=== PATIENT | male | born 1940 | race Caucasian/White ===

== ENCOUNTER → 2017-09-26 | Outpatient (CLI) | payer MEDICARE, BC ==
[~2017-09-26] MED LIST: DILT30TA33 PO; FINA5TAB4 PO; FURO20TA3 PO; LISI5TAB7 PO; METO50TA82 PO; NITR100C6 PO; RIVA20TA PO
[2017-09-26 12:35] LABS: BASOPHILS # (AUTO) 0.05 x10^3/uL (0-0.1); BASOPHILS % (AUTO) 1 % (0-1); EOSINOPHILS # (AUTO) 0.13 x10^3/uL (0-0.4); EOSINOPHILS % (AUTO) 2 % (1-7); LYMPHOCYTES # (AUTO) 1.49 x10^3/uL (1-3.4); LYMPHOCYTES % (AUTO) 19 % (22-44); MD NO; MEAN CORPUSCULAR HEMOGLOBIN 30.4 pg (27.5-34.5); MEAN CORPUSCULAR HGB CONC 33.1 g/dL (33.2-36.2); MEAN PLATELET VOLUME 9.3 fL (7.4-10.4); MONOCYTES # (AUTO) 0.58 x10^3/uL (0.2-0.8); MONOCYTES % (AUTO) 7 % (2-9); NEUTROPHILS # (AUTO) 5.74 x10^3/uL (1.8-6.8); NEUTROPHILS % (AUTO) 72 % (42-75); PLATELET COUNT 209 x10^3/uL (130-400); RED BLOOD COUNT 5.52 x10^6/uL (4.38-5.82); RED CELL DISTRIBUTION WIDTH 14.4 % (9.4-14.8)
[2017-09-26 12:37] LABS: INTERNATIONAL NORMALIZED RATIO 1.21 (0.93-1.1); PROTHROMBIN TIME 12.4 Seconds (9.6-11.5)
[2017-09-26 12:43] LABS: ALBUMIN 3.8 g/dL (3.4-5.0); ANION GAP 8 mmol/L (5-15); CALCIUM 9.4 mg/dL (8.5-10.1); CHLORIDE 103 mmol/L (98-107)
[2017-09-26 12:47] LABS: ALANINE AMINOTRANSFERASE 20 U/L (12-78); ALKALINE PHOSPHATASE 57 U/L (45-117); BILIRUBIN,TOTAL 0.8 mg/dL (0.2-1.0); CREATININE 1.62 mg/dL (0.7-1.3); TOTAL PROTEIN 7.9 g/dL (6.4-8.2)
== END | disposition home or self-care (01) ==
LOC: CFH 10:59
PROVIDERS: ATTEND Internal Medicine Cardiovascular Disease
DX: Z01.818 Encounter for other preprocedural examination (principal); I48.2 Chronic atrial fibrillation; I50.9 Heart failure, unspecified; I42.9 Cardiomyopathy, unspecified; I47.2 Ventricular tachycardia
CPT/HCPCS: 36415; 71046; 80053; 85025; 85610

== ENCOUNTER 2017-09-29 12:18 | Observation (INO) | payer MEDICARE, BC ==
[~2017-09-29] VITALS: Ht 182.9 cm; Wt 105.1 kg
[2017-09-29] MEDS ORDERED: SODIUM CHLORIDE 0.9% 1,000 ML IV SCH (12:53)
[2017-09-29] MEDS: SODIUM CHLORIDE 0.9% 1,000 ML IV SCH ×2 (12:53→20:53)
[2017-09-29] MEDS ORDERED: VANCOMYCIN PMX 1GM/200ML 200 ML IVPB SCH (13:00)
[2017-09-29 13:03] VITALS: BP 110/90
[2017-09-29] MEDS ORDERED: DILT30TA33 PO (13:15)
[2017-09-29] MEDS ORDERED: METO50TA82 PO (13:15)
[2017-09-29] MEDS ORDERED: LISI5TAB7 PO (13:15)
[2017-09-29] MEDS ORDERED: NITR100C6 PO (13:15)
[2017-09-29] MEDS ORDERED: RIVA20TA PO (13:15)
[2017-09-29] MEDS ORDERED: FINA5TAB4 PO (13:15)
[2017-09-29] MEDS ORDERED: FURO20TA3 PO (13:15)
[2017-09-29] MEDS: PLEASE ENTER ALLERGIES MC SCH ×2 (13:30→19:56)
[2017-09-29] MEDS: PLEASE ENTER HEIGHT AND WEIGHT MC SCH ×2 (13:30→19:56)
[2017-09-29] MEDS ORDERED: FENTANYL PF 250 MCG/5ML ONE (15:42)
[2017-09-29] MEDS ORDERED: MIDAZOLAM 1 MG/ML, 2ML ONE (15:42)
[2017-09-29] MEDS ORDERED: SUCCINYLCHOLINE 20 MG/ML, 10ML ONE (15:57)
[2017-09-29] MEDS ORDERED: PROPOFOL 10 MG/ML, 50ML ONE (15:57)
[2017-09-29] MEDS ORDERED: DEXAMETHASONE 4 MG/ML, 1ML ONE (15:57)
[2017-09-29] MEDS ORDERED: ONDANSETRON 2MG/ML, 2ML ONE (15:57)
[2017-09-29] MEDS ORDERED: LIDOCAINE 2%, 20ML ONE (16:16)
[2017-09-29] MEDS ORDERED: VANCOMYCIN PMX 1GM/200ML 200 ML ONE (16:16)
[2017-09-29] MEDS ORDERED: VANCOMYCIN 500 MG ONE (16:16)
[2017-09-29] MEDS ORDERED: HYDROcodone/APAP 5/325 TABLET PO PRN (18:00)
[2017-09-29] MEDS ORDERED: HYDROmorphone 1 MG/ML, 1ML IV PRN (18:30)
[2017-09-29] MEDS ORDERED: OXYcodone 5 MG/5 ML ORAL.SOL UDC PO PRN (18:30)
[2017-09-29] MEDS ORDERED: FENTANYL PF 100 MCG/2ML IV PRN (18:30)
[2017-09-29] MEDS ORDERED: ACETAMINOPHEN 325 MG TABLET PO PRN (18:30)
[2017-09-29] MEDS ORDERED: ONDANSETRON 2MG/ML, 2ML IVPush PRN (18:30)
[2017-09-29] MEDS ORDERED: MIDAZOLAM 1 MG/ML, 2ML IV PRN (18:30)
[2017-09-29] MEDS ORDERED: ACETAMINOPHEN 650 MG/20.3 ML UDC ONE (18:42)
[2017-09-29] MEDS ORDERED: OXYcodone 5 MG/5 ML ORAL.SOL UDC ONE (18:42)
[2017-09-29 19:14] VITALS: BP 102/71
[2017-09-29] MEDS ORDERED: CEFAZOLIN PMX 1GM/50ML 50 ML IVPB SCH (20:00)
[2017-09-29] MEDS: METOPROLOL TARTRATE 50 MG TABLET PO SCH (21:00)
[2017-09-29] MEDS: SODIUM CHLORIDE FLUSH 10ML SYR IVF SCH (21:00)
[2017-09-30] MEDS: CEFAZOLIN PMX 1GM/50ML 50 ML IVPB SCH ×2 (00:34→09:03)
[2017-09-30 00:51] VITALS: BP 97/65
[2017-09-30] MEDS ORDERED: CEFAZOLIN PMX 1GM/50ML 50 ML IVPB SCH (04:00)
[2017-09-30 08:20] VITALS: BP 94/63
[2017-09-30] MEDS ORDERED: METO25TA2 PO (08:43)
[2017-09-30] MEDS: METOPROLOL TARTRATE 50 MG TABLET PO SCH (08:45)
[2017-09-30] MEDS ORDERED: ACET-76 PO (08:46)
[2017-09-30] MEDS ORDERED: LISINOPRIL 5 MG TABLET PO SCH (09:00)
[2017-09-30] MEDS ORDERED: FUROSEMIDE 20 MG TABLET PO SCH (09:00)
[2017-09-30] MEDS ORDERED: FINASTERIDE 5 MG TABLET PO SCH (09:00)
[2017-09-30] MEDS ORDERED: NITROFURANTOIN (MACROBID) 100 MG CAPSULE PO SCH (09:00)
[2017-09-30] MEDS: SODIUM CHLORIDE FLUSH 10ML SYR IVF SCH (09:03)
[2017-09-30] MEDS ORDERED: CEFAZOLIN PMX 1GM/50ML 50 ML IV ONE (11:30)
== END 2017-09-30 12:51 | disposition home or self-care (01) ==
LOC: CACL 12:18 → ORIP 17:58 → 5SO 19:07
PROVIDERS: ADMIT Internal Medicine Cardiovascular Disease; ATTEND Internal Medicine Cardiovascular Disease
DX: I48.2 Chronic atrial fibrillation (principal); I42.9 Cardiomyopathy, unspecified; I50.9 Heart failure, unspecified; I44.2 Atrioventricular block, complete; I47.2 Ventricular tachycardia
CPT/HCPCS: 33225; 33249; 71045; 93640; 93650; 96365; 96375; 96376; C1766; C1769; C1882; C1887; C1892; C1894; C1895; C1900; C2630; G0378; J0330; J0690; J1100; J2250; J2405; J2704; J3010; J3370; J3490; Q9967

== ENCOUNTER → 2017-11-22 | Outpatient (CLI) | payer MEDICARE, BC ==
[~2017-11-22] MED LIST changes: +ACET-76 PO; +METO25TA2 PO
[2017-11-22 11:46] LABS: BASOPHILS # (AUTO) 0.06 x10^3/uL (0-0.1); BASOPHILS % (AUTO) 1 % (0-1); EOSINOPHILS # (AUTO) 0.22 x10^3/uL (0-0.4); EOSINOPHILS % (AUTO) 3 % (1-7); LYMPHOCYTES # (AUTO) 1.56 x10^3/uL (1-3.4); LYMPHOCYTES % (AUTO) 19 % (22-44); MD NO; MEAN CORPUSCULAR HEMOGLOBIN 30.5 pg (27.5-34.5); MEAN CORPUSCULAR HGB CONC 33.4 g/dL (33.2-36.2); MEAN CORPUSCULAR VOLUME 91.4 fL (81-97); MEAN PLATELET VOLUME 8.4 fL (7.4-10.4); MONOCYTES # (AUTO) 0.68 x10^3/uL (0.2-0.8); MONOCYTES % (AUTO) 8 % (2-9); NEUTROPHILS # (AUTO) 5.56 x10^3/uL (1.8-6.8); NEUTROPHILS % (AUTO) 69 % (42-75); PLATELET COUNT 176 x10^3/uL (130-400); RED BLOOD COUNT 4.95 x10^6/uL (4.38-5.82); RED CELL DISTRIBUTION WIDTH 14.9 % (9.4-14.8)
[2017-11-22 11:51] LABS: MICROSCOPIC AUTO
[2017-11-22 11:54] LABS: ALANINE AMINOTRANSFERASE 19 U/L (12-78); ALBUMIN 3.5 g/dL (3.4-5.0); ANION GAP 8 mmol/L (5-15); CALCIUM 8.8 mg/dL (8.5-10.1); CHLORIDE 104 mmol/L (98-107)
[2017-11-22 11:57] LABS: ALKALINE PHOSPHATASE 73 U/L (45-117); BILIRUBIN,TOTAL 0.5 mg/dL (0.2-1.0); TOTAL PROTEIN 7.1 g/dL (6.4-8.2)
== END ==
LOC: STAR 10:25
PROVIDERS: ATTEND Urology
DX: Z01.818 Encounter for other preprocedural examination (principal); R94.31 Abnormal electrocardiogram [ECG] [EKG]; Z95.0 Presence of cardiac pacemaker; Z79.899 Other long term (current) drug therapy
CPT/HCPCS: 36415; 71045; 80053; 81001; 85025; 87077; 87086; 87186; 93005

== ENCOUNTER 2017-12-04 11:58 | Observation (INO) | payer MEDICARE, BC ==
[~2017-12-04] VITALS: Ht 185.4 cm; Wt 110.0 kg
[2017-12-04] MEDS ORDERED: LACTATED RINGERS 1,000 ML IV SCH (12:09)
[2017-12-04] MEDS ORDERED: PHENYLEPHRINE 10 MG/ML ONE (13:25)
[2017-12-04] MEDS ORDERED: DEXAMETHASONE 4 MG/ML, 1ML ONE (13:25)
[2017-12-04] MEDS ORDERED: ONDANSETRON 2MG/ML, 2ML ONE (13:25)
[2017-12-04] MEDS ORDERED: METOCLOPRAMIDE 5 MG/ML, 2ML ONE (13:25)
[2017-12-04] MEDS ORDERED: FENTANYL PF 100 MCG/2ML ONE ×2 (13:31→15:08)
[2017-12-04] MEDS ORDERED: MIDAZOLAM 1 MG/ML, 2ML ONE (13:32)
[2017-12-04] MEDS ORDERED: FENTANYL PF 100 MCG/2ML IV PRN (17:30)
[2017-12-04] MEDS ORDERED: OXYcodone/APAP 5/325MG TABLET PO ONE (17:30)
[2017-12-04] MEDS ORDERED: MORPHINE SULFATE 4 MG/ML, 1ML IV PRN (17:30)
[2017-12-04] MEDS ORDERED: PROMETHAZINE 25 MG/ML, 1ML IV PRN (17:30)
[2017-12-04] MEDS ORDERED: ONDANSETRON 2MG/ML, 2ML IVPush PRN (17:30)
[2017-12-04] MEDS ORDERED: ACETAMINOPHEN 325 MG TABLET PO PRN (17:30)
[2017-12-04] MEDS ORDERED: OXYcodone 5 MG/5 ML ORAL.SOL UDC ONE (17:42)
[2017-12-04] MEDS: OXYcodone 5 MG/5 ML ORAL.SOL UDC PO PRN ×2 (17:47→17:58)
[2017-12-04 21:15] VITALS: BP 112/90
[2017-12-04] MEDS: POTASSIUM CHLORIDE 20 MEQ in D5%-0.9% NACL 1,000 ML IV SCH (23:14)
[2017-12-05 00:52] VITALS: BP 100/63
[2017-12-05] MEDS: CIPROFLOXACIN/PMX 400MG/200ML 200 ML IVPB SCH ×2 (01:15→12:32)
[2017-12-05 04:10] VITALS: BP 96/62
[2017-12-05 05:22] LABS: ANION GAP 9 mmol/L (5-15); CALCIUM 7.8 mg/dL (8.5-10.1); CHLORIDE 109 mmol/L (98-107); CREATININE 1.29 mg/dL (0.7-1.3)
[2017-12-05] MEDS ORDERED: METOPROLOL SUCCINATE 25 MG TAB.ER.24H PO SCH (07:32)
[2017-12-05 07:43] VITALS: BP 92/63
[2017-12-05 08:38] VITALS: BP 99/56
[2017-12-05] MEDS ORDERED: FINASTERIDE 5 MG TABLET PO SCH (09:00)
[2017-12-05] MEDS ORDERED: FUROSEMIDE 20 MG TABLET PO SCH (09:00)
[2017-12-05] MEDS ORDERED: LISINOPRIL 5 MG TABLET PO SCH (09:00)
[2017-12-05] MEDS: POTASSIUM CHLORIDE 20 MEQ in D5%-0.9% NACL 1,000 ML IV SCH (10:48)
[2017-12-05 13:03] VITALS: BP 106/71
[2017-12-05 15:00] VITALS: BP 116/61
== END 2017-12-05 16:10 | disposition home or self-care (01) ==
LOC: OUT 11:58 → ORIP 17:29 → 4NOR 18:39 → DCLOUNGE 12-05 15:50
PROVIDERS: ADMIT Urology; ATTEND Urology
DX: N21.0 Calculus in bladder (principal); N20.1 Calculus of ureter; N40.1 Benign prostatic hyperplasia with lower urinary tract symptoms; Z87.442 Personal history of urinary calculi; R33.8 Other retention of urine
CPT/HCPCS: 36415; 52318; 80048; 82360; 85018; 88300; 88305; 96365; 96375; G0378; J0744; J1100; J2250; J2370; J2405; J2765; J3010; J3480; J7042